=== PATIENT | female | born 1970 | race Two or more races ===

== ENCOUNTER → 2023-11-04 | Outpatient (CLI) | payer OTHER, SELFPAY ==
[2023-11-04 11:46] LABS: Platelet Count 304 K/mm3 (150-450)
[2023-11-04 12:01] LABS: Partial Thromboplast Time 25.8 Seconds (24.1-36.2); Prothrombin Time (Protime)PT. 13.4 SECONDS (11.7-14.9)
== END | disposition home or self-care (01) ==
LOC: PAVLAB 11:30
PROVIDERS: PCP Nurse Practitioner Adult Health; Referring Provider Internal Medicine Critical Care Medicine; Visit Provider Internal Medicine Critical Care Medicine
DX: R91.1 Solitary pulmonary nodule (principal); F17.210 Nicotine dependence, cigarettes, uncomplicated
CPT/HCPCS: 36415; 85049; 85610; 85730

== ENCOUNTER → 2023-12-01 | Outpatient (CLI) | payer MEDICAID, SELFPAY ==
[2023-12-01] VITALS (18 sets, daily range): BP systolic 91–162; BP diastolic 41–103; PULSE 64–71; RESP 12–22; TEMP 36.7; O2SAT 96–100; BMI 23.0
--- NOTE | 2023-12-01 | ASPIGT_PTH ---
PATIENT: IRISH SANCHEZ LOC: [place] U#:[id number] AGE/SX: 53/F ROOM: RE12/01/[address]: Dr. Arlene Lockett MD : [id number] BED: DIS: 12/01/2023 SPEC #: [id number] RECD: 12/01/23 10:00 STATUS: JOHNNY REQ #: [id number] RIVKA: 12/01/23 00:[address]: Jurgen Figueroa DEPT: SURGICAL PATHOLOGY RECD BY: Eleni Drake ENTERED: 12/01/23 10:51 SP TYPE: ASP RAD OTHR DR: MD Lisa Espinal, [employer] HELPER-C Tissues: Lung, NOS Procedures: FNA Specimen Adequacy Special Stain Group II Surgery Specimen Level IV Imprint (control) Comments: @ Ordering doctor for SSII edited from to @ by RUSSELL at 12/01/23 1330 @ Ordering doctor for SUIV edited from to @ by RUSSELL at 12/01/23 1330 @ Ordering doctor for IMPRINT edited from to @ by RUSSELL at 12/01/23 1330 @ Ordering doctor for FNASA edited from to @ by RUSSELL at 12/01/23 1330 @ Submitting doctor edited from to @ by RUSSELL at 12/01/23 1330 HEADER OPERATION: CT guided right lung biopsy PRE-OP DIAGNOSIS: Right lung nodule TISSUE SUBMITTED: 20 guage- 4 cores lung biopsy MICROSCOPIC DIAGNOSIS Right lung nodule, CT guided core biopsy: Minimal fibrosis. Benign cartilaginous tissue. See comment. 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 Clinical correlation is suggested. MICROSCOPIC DESCRIPTION Slides are reviewed. GROSS DESCRIPTION Received in fixative is one container labeled with the patient's name and designated Lung biopsy. The specimen consists of multiple minute fragments of light sifuentes soft tissue measuring in aggregate 1.0 x <0.1 x <0.1cm. The specimen is totally submitted in one cassette. AM/mr 12/01/23 TC:5 CPT:10607
--- NOTE | 2023-12-01 07:46 | CT_ITS ---
STUDY: CT ABDOMEN AND PELVIS WITH AND WITHOUT CONTRAST REASON FOR EXAM: Female, 53 years old. MICROHEMATURIA RADIATION DOSAGE (If Supplied By Facility): CTDIvol = ( 16.05 ) mGy, DLP = ( 2413.06 ) mGycm TECHNIQUE: Transaxial images were obtained from the dome of the diaphragm to the symphysis pubis without oral contrast. IV 100mL Isovue-370 was administered. Sagittal and coronal images were reconstructed. Individualized dose optimization techniques were used for this CT. COMPARISON: None. FINDINGS: The visualized lung bases are unremarkable. The visualized portions of the heart are within normal limits. Normal liver. There are surgical clips in the gallbladder fossa consistent with a prior cholecystectomy. Normal spleen. Normal pancreas. Focal punctate calcification in the medial limb of the left adrenal gland. Normal right kidney. Normal left kidney. Incidental note is made of a left retroaortic renal vein. Normal visualized stomach. Normal small intestine. There are multiple colonic diverticula consistent with diverticulosis. The appendix is visualized and appears normal. There is scattered atherosclerotic calcification of the abdominal aorta, without a demonstrated aneurysm. Normal inferior vena cava. Normal retroperitoneum. There is a mild degree of diffuse bladder wall thickening. This may represent mild cystitis. Normal abdominal wall. There are degenerative changes of the visualized lumbar spine. CT/CT Abd/Pelvis W/WO Contrast IMPRESSION: Mild degree of diffuse bladder wall thickening. Status post cholecystectomy. Sigmoid diverticulosis. Electronically Signed: Ja Parr MD at 15:29 EDT ,
[2023-12-01] MEDS: 0.9% Normal Saline (250mL Bag) 250 ML 15 ML IV (09:08)
[2023-12-01] MEDS: Midazolam 2 MG/2 ML Syringe IV ×2 (09:08→09:29)
[2023-12-01] MEDS: fentaNYL 100 MCG/2 ML Ampul IV ×2 (09:10→09:31)
--- NOTE | 2023-12-01 09:15 | RAD_ITS ---
STUDY: X-RAY CHEST REASON FOR EXAM: Female, 53 years old. Immediately post lung biopsy -- Immediately post lung biopsy TECHNIQUE: AP inspiration and expiration views. COMPARISON: None. FINDINGS: Immediate post right lung biopsy radiographs were obtained. There is no evidence of pneumothorax. RAD/Chest Insp/Exp 2 View IMPRESSION: No evidence of pneumothorax on the immediate post right lung biopsy radiographs. Electronically Signed: Ja Parr MD at 15:47 EDT ,
[2023-12-01] MEDS: Lidocaine 2% (20 ml mdv) 20 ML Vial INFILT (09:27)
--- NOTE | 2023-12-01 11:15 | RAD_ITS ---
STUDY: X-RAY CHEST REASON FOR EXAM: Female, 53 years old. 2 hours post lung biopsy -- 2 hours post lung biopsy TECHNIQUE: AP inspiration and expiration views COMPARISON: Comparison is made with prior study done earlier today. FINDINGS: The patient is status post right lung biopsy. No evidence of pneumothorax. RAD/Chest Insp/Exp 2 View IMPRESSION: No evidence of pneumothorax on the 2 hour post right lung biopsy radiographs. Electronically Signed: Ja Parr MD at 12:23 EDT ,
--- NOTE | 2023-12-01 14:34 | PCM.OP.PRO ---
Procedure Report Date of Procedure: 12/01/23 Assessment & Plan Assessment/Plan (1) Lung nodule: PLAN: PROCEDURE: CT GUIDED CORE NEEDLE LUNG BIOPSY ORDERING PROVIDER: Dr. Jurgen Figueroa INDICATION: Female, 53 years old. Lung nodule PROVIDER: MEERA Velasco CONSENT: Written informed consent was obtained having explained the risks, benefits and alternatives in detail with the patient who accepted the risks and agreed to proceed. Laboratory review and clinical assessment was performed. PRE-PROCEDURE SEDATION ASSESSMENT: Current history and physical dictated by referring physician and reviewed. No clinical changes since date of exam. Patient has an ASA Class of 2. PROCEDURAL SEDATION PROTOCOL: The Drugs used were: 3 mg Versed, IV, and 75 mcg Fentanyl, IV. The sedation time was: 28 minutes, starting at 9:08 AM and terminated at 9:36 AM. The procedural sedation protocol was independently monitored by the department nurse. RADIATION DOSAGE (If Supplied By Facility): CTDIvol = 29.56 mGy, DLP = 2413.06 mGycm Individualized dose optimization techniques were used for this CT. TECHNIQUE: The patient was placed in a prone position. A noncontrast CT was performed to localize the lesion in the right upper lobe. The skin surface was prepped and draped in a sterile fashion. 2% lidocaine was used for local anesthesia. Using CT guidance, a 20-gauge coaxial biopsy device was advanced to the periphery of the lesion. A total of 4 core specimens were obtained. Specimens were microscopically reviewed by pathology in the CT suite and placed in formalin solution. BioSentry tract sealant system was deployed at the biopsy site, and the biopsy needle was removed. A sterile occlusive dressing was applied to the biopsy site. The patient tolerated the procedure well. An immediate chest xray was ordered, per protocol. A negative biopsy does not exclude malignancy. Further imaging or clinical followup based on patient condition and degree of clinical suspicion for malignancy. Suggest rebiopsy, if biopsy results do not match with clinical scenario. IMPRESSION: 1. CT directed core needle biopsy of right upper lobe nodule using CT image guidance with image documentation as described. Pathology results are pending. 2. Procedural Sedation protocol utilized with independent monitoring by the department nurse. Procedures Radiology Radiology CT Procedures: 99120 Biopsy Lung
== END | disposition home or self-care (01) ==
PROVIDERS: PCP Nurse Practitioner Adult Health; Referring Provider Urology; Visit Provider Urology
DX: R31.29 Other microscopic hematuria (principal); N13.30 Unspecified hydronephrosis; R91.1 Solitary pulmonary nodule
CPT/HCPCS: 32408; 71046; 74178; 77012; 88172; 88305; 88313; 99156; J7050; Q9967; C2613

== ENCOUNTER → 2023-12-14 | Outpatient (CLI) | payer MEDICAID, SELFPAY ==
--- NOTE | 2023-12-14 08:30 | PET_ITS ---
EXAMINATION: FDG PET/CT ? INDICATIONS: 53-year-old female with a history of pulmonary nodularity. ? COMPARISON EXAMINATION: CT of the abdomen and pelvis report dated 12/01/2023, CT of the chest report dated 10/28/2023. ? INDEX LESION SIZE SUV INTERPRETATION Right lower lung field, right lower lobe ? 1.0 max Quantitative criteria for viable neoplasm are not fulfilled, sequential radiologic investigation recommended ? TECHNIQUE: Following the intravenous administration of 12.55 mCi of F-18 deoxyglucose via the right antecubital fossa, multiplanar image acquisitions of the head, neck, chest, abdomen and pelvis to the level of the midthigh, obtained at one-hour post radiopharmaceutical administration contemporaneously interpreted with the current CT of the chest, abdomen and pelvis dated 12/14/[address] of the abdomen and pelvis report dated 12/01/2023, CT of the chest report dated 10/28/2023 via coregistration reveal: ? SERUM GLUCOSE LEVEL:? 102 mg/dL? HEIGHT:?? 64 inches WEIGHT:?? 157 pounds ? FINDINGS: ? HEAD/NECK:? There is no evidence of abnormal increased glucose metabolism in the pharyngeal mucosal space, parapharyngeal space, oropharynx, bilateral-lateral and anterior neck, hypopharynx and distribution of the larynx. ? The visualized portion of the cerebral cortical-subcortical structures demonstrate symmetric and preserved glucose metabolism. ? CHEST:? Facilitated radiopharmaceutical concentration is defined in the right mid lung field, on the border of the major fissure involving the right lower lobe. The calculated standard uptake value is 1.0. Quantitative criteria for neoplasm are not fulfilled. ? CT of the chest demonstrates the following anatomic characteristics: Atherosclerotic calcification is defined in the thoracic aorta without evidence of dilatation, aneurysm formation. Coronary artery calcification is observed. Mediastinal and bilateral axillary soft tissue densities are ametabolic. ? ABDOMEN/PELVIS:? Normal physiologic distribution of the radiopharmaceutical is identified in the hepatic (2.7) and splenic parenchyma, both renal units, urinary bladder, and visualized intestinal tract. ? CT of the abdomen and pelvis is remarkable for the following: The gallbladder is surgically absent. Atherosclerotic calcification is defined in the abdominal aorta without evidence of dilatation, aneurysm formation. Pelvic arterial calcification is observed. Right and left inguinal soft tissue densities are ametabolic. Right and left inguinal soft tissue is nonglucose avid. Calcified phlebolith formation is noted in the bilateral lower hemipelvis. ? SKELETAL:? There is no evidence of quantitatively significant enhanced glucose metabolism on meticulous inspection of the appendicular and axial skeletal structures. ? Degenerative changes defined in the thoracic and lumbar spine demonstrate no evidence of increased glucose metabolism. There are no sclerotic, mixed sclerotic-lytic, or primarily lytic changes defined in the axial skeletal structures with evidence of increased FDG uptake. ? PET/PET/CT Tumor Base -Thigh Init IMPRESSION: 1. NEGATIVE EXAMINATION. There is no definitive quantitative scintigraphic evidence of viable neoplasm. 2. Enhanced tracer uptake noted in the right lower lung field, right lower lobe does not fulfill quantitative criteria for malignant transformation. (Mona et al, Journal of Nuclear Medicine, 32:1, 1991). 3. Anatomic stability may be ensured with repeat FDG-PET CT of the thorax in 3-6 months if clinically indicated. ([place], Seminars in Thoracic and Cardiovascular surgery, 14:292, 2002). Electronic Signature Addison Beck D.O. Accurate Quantification of SUVs for this report are calculated using the exclusive [employer]. ([place]. Patent No. [id number], 674, 983 B2 [phone] [place] patent [id number] [id number]). Standardization and correction of the FDG SUV metric via [employer] technology allow for vendor non-specific objective quantitative examination comparison and optimization of the sensitivity and specificity of the FDG PET-CT examination. . [email or web address] Electronically Signed: Addison Beck DO at 23:17 EDT ,
== END | disposition home or self-care (01) ==
LOC: ONC 08:25
PROVIDERS: PCP Nurse Practitioner Adult Health; Referring Provider Internal Medicine Critical Care Medicine; Visit Provider Internal Medicine Critical Care Medicine
DX: R91.1 Solitary pulmonary nodule (principal); F17.210 Nicotine dependence, cigarettes, uncomplicated
CPT/HCPCS: 78815; A9552